=== PATIENT | male | born 1940 | race Caucasian/White ===

== ENCOUNTER 2019-03-26 11:51 | Emergency (ER) | payer MEDICARE ==
--- OUTSIDE RECORDS SUMMARY | 2019-03-26 12:24 | XMS REPORT | Continuity of Care Document ---
:1940 External Reference #:[id number] Author Name Cain Díaz M.D. 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 Problems Description No Information Available Social History Type Date Description Comments Sex Unknown Tobacco Use Start: Unknown Never Smoked Cigarettes ETOH Use Never used alcohol Recreational Drug Use Never Used Drugs Allergies, Adverse Reactions, Alerts Active Allergies Reaction Severity Comments Date Cipro 01/19/2019 Augmentin 01/19/2019 Medications Active Medications SIG Qnty Indications Ordering Provider Date Invokana 1 by mouth every Unknown 100mg Tablets day Xarelto 1 by by mouth Unknown 15mg Tablets twice a day Lovastatin 1 by mouth every Unknown 20mg Tablets day Metformin HCL 1 by mouth every Unknown 500mg Tablets day Tamsulosin HCL 1 by mouth every Unknown 0.4mg day Capsules Lisinopril 1 by mouth every Unknown 10mg Tablets day Glipizide 1 by mouth twice Unknown 5mg Tablets a day Lantus Solostar Unknown 100Unit/ML Solution Pen-Inject Metoprolol Succinate ER 1 by mouth every Unknown day 25mg Tablets ER 24HR Immunizations Description No Information Available Vital Signs Date Vital Result Comment 02/10/2019 8:32am Weight 222.00 lb Height 66 inches 5'6" BMI (Body Mass Index) 35.8 kg/m2 BP Systolic 123 mmHg BP Diastolic 76 mmHg Heart Rate 89 /min O2 % BldC Oximetry 96 % Body Temperature 96.7 F Pain Level 0 01/19/2019 11:06am Weight 222.00 lb Height 66 inches 5'6" BMI (Body Mass Index) 35.8 kg/m2 BP Systolic 117 mmHg BP Diastolic 79 mmHg Heart Rate 108 /min O2 % BldC Oximetry 95 % Body Temperature 97.3 F [place] Score 0 Neck Circumference in inches 17 Pain Level 0 Results Description No Information Available Procedures Date Code Description Status 01/22/2019 25274 Sleep Staging 4Or More Para Completed 01/19/2019 10777 Fiberoptic Laryngoscopy,Diag. Completed Medical Devices Description No Information Available Encounters Type Date Location Provider Dx Diagnosis Office Visit 01/19/2019 11:30a Main Office Cain Díaz M.D. R06.83 Snoring G47.9 Sleep disorder, unspecified E66.9 Obesity, unspecified G47.00 Insomnia, unspecified Assessments Date Code Description Provider 01/22/2019 G47.33 Obstructive sleep apnea (adult) Sleep Lab - Petros Hercules MD (pediatric) 01/19/2019 R06.83 Snoring Cain Díaz M.D. 01/19/2019 G47.9 Sleep disorder, unspecified Cain Díaz M.D. 01/19/2019 E66.9 Obesity, unspecified Cain Díaz M.D. 01/19/2019 G47.00 Insomnia, unspecified Cain Díaz M.D. Plan of Treatment No Information Available Functional Status Description No Information Available Mental Status Description No Information Available Referrals Description No Information Available
[2019-03-26 12:32] VITALS: BP 119/67
--- NOTE | 2019-03-26 12:43 | UC ---
Skin Complaint HPI - HPI Summary HPI Summary: Rash on arms and legs for 1 1/2 months, no new meds. Saw PCP and has been on 2 tapering courses of Prednisone with only mild relief. The rash did not completely go away. - History of Current Complaint Chief Complaint: UCSkin Time Seen by Provider: 03/26/19 12:42 Stated Complaint: RASH Hx Obtained From: Patient Onset/Duration: Gradual Onset, Lasting Weeks, Still Present Timing: Constant Onset Severity: Mild Current Severity: Moderate Pain Intensity: 0 Location: Diffuse Character: Pruritus - Only itchy if he touches it. Aggravating Factor(s): Touch Alleviating Factor(s): Other - Tapering course of Prednisone X 2 taken with only mild improvement Associated Signs & Symptoms: Positive: Rash - Allergy/Home Medications Allergies/Adverse Reactions: Allergies Allergy/AdvReac Type Severity Reaction Status Date / Time amoxicillin [From Augmentin] Allergy Unknown Verified 03/26/19 12:25 Reaction Details ciprofloxacin Allergy See Comment Verified 03/26/19 12:25 clavulanic acid Allergy Unknown Verified 03/26/19 12:25 [From Augmentin] Reaction Details Home Medications: Home Medications Canagliflozin (NF) [Invokana (NF)] 300 mg PO DAILY 03/26/19 [History Confirmed 03/26/19] Insulin Glargine,Hum.rec.anlog [Lantus Solostar 5x3 ML PENS] 16 unit QPM [History Confirmed 03/26/19] Lovastatin 1 tab DAILY 03/26/19 [History Confirmed 03/26/19] glipiZIDE TAB* [Glucotrol TAB*] 1 tab PO DAILY 03/26/19 [History Confirmed 03/26] metFORMIN* [Glucophage 1000 MG TAB *] 1,000 mg PO BID 03/26/19 [History Confirmed 03/26/19] PMH/Surg Hx/FS Hx/Imm Hx Previously Healthy: Yes Endocrine History: Diabetes Cardiovascular History: Hypertension - Surgical History Surgical History: Yes Surgery Procedure, Year, and Place: hernia - Family History Known Family History: Positive: Non-Contributory - Social History Occupation: Retired Alcohol Use: None Substance Use Type: None Smoking Status (MU): Former Smoker - Immunization History Most Recent Influenza Vaccination: Fall 2013 Most Recent Tetanus Shot: Unsure Most Recent Pneumonia Vaccination: <5years Review of Systems All Other Systems Reviewed And Are Negative: Yes Skin: Positive: Rash - Diffuse mostly on arms and legs Is Patient Immunocompromised?: No Physical Exam Triage Information Reviewed: Yes Appearance: Well-Appearing, No Pain Distress, Well-Nourished Vital Signs: Initial Vital Signs Temp 97.9 F 03/26/19 12:25 Pulse 91 03/26/19 12:25 Resp 16 03/26/19 12:25 BP 119/67 03/26/19 12:25 Pulse Ox 96 03/26/19 12:25 Vital Signs Reviewed: Yes Respiratory: Positive: Lungs clear, Normal breath sounds, No respiratory distress, No accessory muscle use Cardiovascular: Positive: RRR, No Murmur, Pulses Normal, Brisk Capillary Refill Musculoskeletal Exam: Normal Neurological Exam: Normal Psychological Exam: Normal Skin: Positive: Rashes - Dry scaly rash in various sizes and shapes on arms and legs. Some areas are scabbed from pt picking at the. Around the elbows it appears like psoriasis. Some areas look like nummular dermatitis, some look like erythema multiforme. Blanchable, rased in some areas with discrete border in some but not all. Course/Dx - Course Course Of Treatment: Discussed with Dr. Mcdaniel who also evaluated the rash. Will treat with Acyclovir for 2 weeks with a definite follow up with a rugby league footballer...to call tomorrow for an appointment before the 2 weeks of medicine is finished since he may need additional weeks of acyclovir. - Differential Diagnoses - Skin Complaint Differential Diagnoses: Other - Nummular dermatitis, psoriasis - Diagnoses Provider Diagnosis: Erythema multiforme, Rash and other nonspecific skin eruption Discharge ED - Sign-Out/Discharge Documenting (check all that apply): Patient Departure All imaging exams completed and their final reports reviewed: No Studies - Discharge Plan Condition: Fair Disposition: HOME Prescriptions: Acyclovir* [Zovirax 400 MG TAB*] 400 mg PO TID 14 Days #42 tab Patient Education Materials: Acute Rash (ED) Referrals: Gurwinder Carrera MD [Primary Care Provider] - Jenni Orlando MD [Medical Doctor] - Additional Instructions: This may be Erythema Multiforme, so we will treat you with Acyclovir, but you need to call the rugby league footballer tomorrow and make an appointment to be seen in the next week or 2 because many times the Acyclovir is given for 1-2 months. Avoid scratching. - Billing Disposition and Condition Condition: FAIR Disposition: Home - Attestation Statements Provider Attestation: I was available for consult. This patient was seen by the [facility]. The patient was presented to , seen by and examined by me. HPI: Rash on bilateral upper and lower extremities that has been going on for quite some time. He has tried to taper it courses of prednisone with some relief but it recurs. Denies any fevers or chills, sick contacts. Physical exam: Bilateral upper and lower extremities demonstrate pinkish round papules . Some lesion with scabbing/ crusting. Someone on extensor surfaces with scaling. No drainage or bleeding noted. Some are blanchable. Assessment plan: Erythema multiforme versus nummular dermatitis versus psoriasis. We discussed the option of trial of acyclovir . Plan to definitely follow up with dermatology. He is advised to return with any worsening of symptoms -Fermin Mcdaniel MD
== END 2019-03-26 13:11 | disposition home or self-care (01) ==
LOC: UCCORT 11:51
DX: R21 Rash and other nonspecific skin eruption (principal); L51.9 Erythema multiforme, unspecified; E11.9 Type 2 diabetes mellitus without complications; I10 Essential (primary) hypertension; Z87.891 Personal history of nicotine dependence; Z88.0 Allergy status to penicillin; Z88.1 Allergy status to other antibiotic agents
CPT/HCPCS: 99212; G0463